=== PATIENT | female | born 1955 | race Caucasian/White ===

== ENCOUNTER → 2017-11-29 13:53 | Outpatient (CLI) | payer OTHER, SELFPAY ==
--- NOTE | 2017-11-29 13:59 | VDLE_ITS ---
Reason For Study: Lt Calf Pain RIGHT LEFT CFV is compressible, spontaneous, phasic, GSV is normal. competent and demonstrates normal CFV is compressible, spontaneous, phasic, augmentation. competent, and demonstrates normal Procedure augmentation. Exam performed in department. FV is compressible, spontaneous, phasic, A preliminary report was called and/or faxed competent and demonstrates normal to Dr. Jennings. augmentation. POP V is compressible, spontaneous, phasic, competent and demonstrates normal augmentation. T/P Trunk is compressible. PTV is compressible. LT PerV is compressible. Lt GastrocV is dilated and non compressible consistent with acute DVT Image 20 mislabeled; should be labeled LEFT GastrocV Lt GSV, Lt SSV, and Lt Vein of Giacomini are occluded s/p EVLA. Interpretation Summary Acute deep vein thrombosis is noted in a short segment of the left gastrocnemius vein. The remainder of the left lower extremity deep venous system is patent and compressible. Valvular competence appears intact within the proximal deep venous system on the left . The left great saphenous vein, small saphenous vein, and vein of Giacomini are occluded, consistent with a recent endothermal ablation procedure. Ordering Physician: Cresencio Jennings Referring Physician: Cresencio Jennings Performed By: Holli Amaro, KOBY, RVT
== END ==
PROVIDERS: Referring Provider Surgery; Visit Provider Surgery
DX: M79.662 Pain in left lower leg (principal); I87.2 Venous insufficiency (chronic) (peripheral)
CPT/HCPCS: 93971

== ENCOUNTER → 2017-12-07 13:59 | Outpatient (CLI) | payer OTHER, SELFPAY ==
--- NOTE | 2017-12-07 14:01 | VDLE_ITS ---
Reason For Study: F/U LLE Gastroc clot Procedure LEFT Exam performed in department. CFV is compressible, spontaneous, phasic, competent, and demonstrates normal augmentation. FV is compressible, spontaneous, phasic, competent and demonstrates normal augmentation. POP V is compressible, spontaneous, phasic, competent and demonstrates normal augmentation. T/P Trunk is compressible. PTV is compressible. LT PerV is compressible. Gastroc v is now partially compressible with vein wall thickening. GSV, SSV and Vein of Giacomini are occluded s/p EVLA. Interpretation Summary The left gastrocnemius vein is partially compressible and demonstrates vein wall thickening, an improvement over the acute deep vein thrombosis that was noted on a prior study on 11/29/2017. The remainder of the left lower extremity deep venous system is patent and compressible. Valvular competence appears intact within the proximal deep venous system on the left . The left great saphenous vein, small saphenous vein, and vein of Giacomini are occluded, consistent with a prior endothermal ablation procedure. Ordering Physician: Cresencio Jennings Referring Physician: Cresencio Jennings Performed By: Maki Lui RVT
== END ==
PROVIDERS: Referring Provider Surgery; Visit Provider Surgery
DX: I82.4Z2 Acute embolism and thrombosis of unspecified deep veins of left distal lower extremity (principal); I87.2 Venous insufficiency (chronic) (peripheral); M79.609 Pain in unspecified limb; I83.10 Varicose veins of unspecified lower extremity with inflammation
CPT/HCPCS: 93971